=== PATIENT | female | born 1980 | race Caucasian/White ===

== ENCOUNTER 2016-12-27 23:30 | Emergency (ER) | payer MEDICAID ==
[~2016-12-27] VITALS: Ht 182.9 cm; Wt 107.6 kg
[~2016-12-27 23:30] MED LIST: ASPI1TAB24 PO; CLIN300C93 PO; NAPR500T PO; SUMA25TA3 PO
[2016-12-27] MEDS ORDERED: ONDANSETRON ODT 4 MG ONE (23:55)
[2016-12-28] MEDS ORDERED: ONDANSETRON ODT 4 MG PO ONE
[2016-12-28 00:02] VITALS: BP 131/95
== END 2016-12-28 01:36 | disposition home or self-care (01) ==
LOC: ED 12-28 01:32
DX: S16.1XXA Strain of muscle, fascia and tendon at neck level, initial encounter (principal); S00.03XA Contusion of scalp, initial encounter; F15.10 Other stimulant abuse, uncomplicated; F41.9 Anxiety disorder, unspecified; F17.210 Nicotine dependence, cigarettes, uncomplicated; Y04.0XXA Assault by unarmed brawl or fight, initial encounter; Y93.89 Activity, other specified; Y92.410 Unspecified street and highway as the place of occurrence of the external cause; Y99.9 Unspecified external cause status
CPT/HCPCS: 70450; 70486; 72125; 73130; 99284; Q0162

== ENCOUNTER 2017-12-21 16:25 | Emergency (ER) | payer MEDICAID ==
[~2017-12-21] VITALS: Ht 182.9 cm; Wt 110.2 kg
[~2017-12-21 16:25] MED LIST changes: +CLIN300C8 PO; -CLIN300C93 PO; +NAPR-856 PO; -NAPR500T PO
[2017-12-21 16:29] VITALS: BP 132/84
[2017-12-21] MEDS ORDERED: KETOROLAC 30 MG/1 ML ONE (16:52)
[2017-12-21] MEDS ORDERED: KETOROLAC 30 MG/1 ML IM ONE (17:00)
== END 2017-12-21 17:37 | disposition home or self-care (01) ==
LOC: ED 17:31
DX: S20.212A Contusion of left front wall of thorax, initial encounter (principal); E66.9 Obesity, unspecified; F31.9 Bipolar disorder, unspecified; X58.XXXA Exposure to other specified factors, initial encounter; Y93.89 Activity, other specified; Y92.098 Other place in other non-institutional residence as the place of occurrence of the external cause; Y99.8 Other external cause status
CPT/HCPCS: 71046; 71120; 96372; 99284; J1885

== ENCOUNTER 2019-07-21 17:17 | Emergency (ER) | payer MEDICAID ==
[~2019-07-21] VITALS: Ht 182.9 cm; Wt 118.0 kg
[2019-07-21 17:35] VITALS: BP 119/85
== END 2019-07-21 18:56 | disposition home or self-care (01) ==
LOC: ED 18:53
DX: S90.31XA Contusion of right foot, initial encounter (principal); F17.200 Nicotine dependence, unspecified, uncomplicated; W22.8XXA Striking against or struck by other objects, initial encounter; Y93.89 Activity, other specified; Y92.009 Unspecified place in unspecified non-institutional (private) residence as the place of occurrence of the external cause; Y99.8 Other external cause status
CPT/HCPCS: 99283

== ENCOUNTER 2019-08-30 21:34 | Emergency (ER) | payer MEDICAID ==
[~2019-08-30] VITALS: Ht 182.9 cm; Wt 124.1 kg
--- NOTE | 2019-08-30 21:47 | NUR ---
"ALMOST FELL OFF MY BED" S/P HYSTERECTOMY. STATES SHE FELT A RIP IN HER ABD. PAIN STARTED IMMEDIATELY AFTER SHE FELL. "FEELS LIKE MY COOCHIE IS POOCHED OUT" PAIN IN LEFT LOWER QUARD. PAIN 8/10 AFTER FALL UNTIL NOW. PAIN WAS 0/10 BEFORE FALL.
[2019-08-30] MEDS ORDERED: ONDANSETRON 2MG/ML, 2ML IVPush ONE (22:00)
[2019-08-30] MEDS ORDERED: MORPHINE SULFATE 4 MG/ML, 1ML IVPush PRN (22:00)
[2019-08-30] MEDS ORDERED: MORPHINE SULFATE 4 MG/ML, 1ML ONE (22:16)
[2019-08-30] MEDS ORDERED: ONDANSETRON 2MG/ML, 2ML ONE (22:16)
[2019-08-30 22:18] LABS: BASOPHILS # (AUTO) 0.13 x10^3/uL (0-0.1); BASOPHILS % (AUTO) 1 % (0-1); EOSINOPHILS % (AUTO) 3 % (1-7); LYMPHOCYTES # (AUTO) 3.25 x10^3/uL (1-3.4); LYMPHOCYTES % (AUTO) 33 % (22-44); MD NO; MEAN CORPUSCULAR HEMOGLOBIN 29.5 pg (27.0-34.8); MEAN CORPUSCULAR HGB CONC 33.2 g/dL (32.4-35.8); MEAN PLATELET VOLUME 8.5 fL (7.4-10.4); MONOCYTES % (AUTO) 7 % (2-9); NEUTROPHILS # (AUTO) 5.61 x10^3/uL (1.8-6.8); NEUTROPHILS % (AUTO) 56 % (42-75); PLATELET COUNT 255 x10^3/uL (130-400); RED BLOOD COUNT 4.36 x10^6/uL (3.82-5.3); RED CELL DISTRIBUTION WIDTH 13.6 % (9.6-15.2)
--- NOTE | 2019-08-30 22:20 | NUR ---
PIV placed and pt medicated for pain per emar. will reassess pain
[2019-08-30 22:24] LABS: MICROSCOPIC AUTO
[2019-08-30 22:26] LABS: CULTURE INDICATED? YES
[2019-08-30 22:27] LABS: ALANINE AMINOTRANSFERASE 17 U/L (12-78); ALBUMIN 3.3 g/dL (3.4-5.0); ANION GAP 5 mmol/L (5-15); CALCIUM 8.2 mg/dL (8.5-10.1); CHLORIDE 115 mmol/L (98-107); CREATININE 1.47 mg/dL (0.55-1.02)
[2019-08-30 22:31] LABS: ALKALINE PHOSPHATASE 77 U/L (45-117); BILIRUBIN,TOTAL 0.2 mg/dL (0.2-1.0); TOTAL PROTEIN 6.5 g/dL (6.4-8.2)
--- NOTE | 2019-08-30 23:08 | NUR ---
pt report pain has improved to 5/10
--- NOTE | 2019-08-30 23:10 | NUR ---
pt for recheck by
[2019-08-30 23:32] VITALS: BP 117/84
[2019-08-30] MEDS ORDERED: OMNIPAQUE 350 MG/ML, 100ML BOTTLE ONE (23:45)
== END 2019-08-30 23:34 | disposition home or self-care (01) ==
LOC: ED 21:56
DX: S39.011A Strain of muscle, fascia and tendon of abdomen, initial encounter (principal); R10.31 Right lower quadrant pain; R10.12 Left upper quadrant pain; F17.200 Nicotine dependence, unspecified, uncomplicated; Z90.49 Acquired absence of other specified parts of digestive tract; Z90.710 Acquired absence of both cervix and uterus; X58.XXXA Exposure to other specified factors, initial encounter; Y93.89 Activity, other specified; Y92.89 Other specified places as the place of occurrence of the external cause; Y99.8 Other external cause status
CPT/HCPCS: 36415; 74177; 80053; 81001; 83690; 84703; 85025; 87086; 96374; 96375; 99284; J2270; J2405; Q9967

== ENCOUNTER 2019-09-08 10:38 | Emergency (ER) | payer MEDICAID ==
[~2019-09-08] VITALS: Ht 182.9 cm; Wt 121.9 kg
[2019-09-08 10:46] VITALS: BP 140/84
--- NOTE | 2019-09-08 10:53 | NUR ---
PT TO ED WITH L EAR PAIN/DRAINAGE "OLD EAR WAX", STATES HER R EAR DRUM BURST A MONTH AGO AND WAS SIMILAR, UNKNOWN REASON. PT RESTING IN [facility], CALL LIGHT WITHIN REACH.
== END 2019-09-08 11:49 | disposition home or self-care (01) ==
LOC: ED 11:46
DX: H60.92 Unspecified otitis externa, left ear (principal); Z87.42 Personal history of other diseases of the female genital tract
CPT/HCPCS: 99283

== ENCOUNTER 2020-06-16 22:35 | Emergency (ER) | payer MEDICAID ==
[~2020-06-16] VITALS: Ht 182.9 cm; Wt 144.0 kg
[2020-06-16] MEDS ORDERED: IBUPROFEN 600 MG TABLET PO ONE (23:30)
[2020-06-16] MEDS ORDERED: IBUPROFEN 600 MG TABLET ONE (23:32)
[2020-06-17 00:42] VITALS: BP 130/86
== END 2020-06-17 00:54 | disposition home or self-care (01) ==
LOC: ED 23:28
DX: G89.11 Acute pain due to trauma (principal); M25.532 Pain in left wrist; M79.642 Pain in left hand; M77.9 Enthesopathy, unspecified
CPT/HCPCS: 29125; 99284

== ENCOUNTER 2020-08-10 14:51 | Emergency (ER) | payer MEDICAID ==
[~2020-08-10] VITALS: Ht 182.9 cm; Wt 146.8 kg
[2020-08-10 15:17] VITALS: BP 161/94
== END 2020-08-10 16:25 | disposition home or self-care (01) ==
LOC: ED 16:00
DX: S43.52XA Sprain of left acromioclavicular joint, initial encounter (principal); G43.909 Migraine, unspecified, not intractable, without status migrainosus; F17.210 Nicotine dependence, cigarettes, uncomplicated; Z90.49 Acquired absence of other specified parts of digestive tract; Z98.51 Tubal ligation status; Z90.710 Acquired absence of both cervix and uterus; X58.XXXA Exposure to other specified factors, initial encounter; Y93.89 Activity, other specified; Y92.89 Other specified places as the place of occurrence of the external cause; Y99.8 Other external cause status
CPT/HCPCS: 99283; 99406

== ENCOUNTER 2020-10-03 14:26 | Emergency (ER) | payer MEDICAID ==
[~2020-10-03] VITALS: Ht 182.9 cm; Wt 147.4 kg
[~2020-10-03 14:26] MED LIST changes: -CLIN300C8 PO; +CLIN300C9 PO
--- NOTE | 2020-10-03 16:27 | NUR ---
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
--- NOTE | 2020-10-03 16:31 | NUR ---
THIS IS A 39 YEAR OLD FEMALE WHO C/O OF BURNING RUQ/LUQ ABD PAIN X ONE WEEK. DENIES N/V. HX OF VIKAS. PT TO BR TO OBTAIN URINE, EXPLAINED CLEAN CATCH. PT VERBALIZED UNDERSTANDING
[2020-10-03] MEDS ORDERED: MAALOX/HYOSCYAMINE/LIDOCAINE 45 ML BTL ONE (16:52)
[2020-10-03 16:58] LABS: HCG UR SG 1.024 (1.003-1.030); MICROSCOPIC AUTO
[2020-10-03] MEDS ORDERED: MAALOX/HYOSCYAMINE/LIDOCAINE 45 ML BTL PO ONE (17:00)
[2020-10-03] MEDS ORDERED: ONDANSETRON ODT 4 MG PO ONE (17:00)
[2020-10-03] MEDS ORDERED: HYDROcodone/APAP 5/325 TABLET PO ONE ×2 (17:00→21:00)
--- NOTE | 2020-10-03 17:00 | NUR ---
assumed care of pt. pt here for epigastric pain x2 days. pt also c/o nausea but denies vomtiing. pt states that she has been having diarrhea, last episode this AM. pt is currently resting on gurney in position of comfort with family member at bedside. pt has been medicated. pt advised not to drive after GI cocktail. pt verablized understanding. positioning for comfort. lab has been to bedside. pt updated on POC
[2020-10-03 17:03] LABS: BASOPHILS % (AUTO) 1 % (0-1); EOSINOPHILS % (AUTO) 1 % (1-7); LYMPHOCYTES % (AUTO) 27 % (22-44); MEAN CORPUSCULAR HEMOGLOBIN 28.6 pg (27.0-34.8); MEAN CORPUSCULAR HGB CONC 33.9 g/dL (32.4-35.8); MEAN PLATELET VOLUME 7.6 fL (7.4-10.4); MONOCYTES % (AUTO) 6 % (2-9); NEUTROPHILS % (AUTO) 65 % (42-75); PLATELET COUNT 251 x10^3/uL (130-400); RED BLOOD COUNT 5.15 x10^6/uL (3.82-5.3); RED CELL DISTRIBUTION WIDTH 13.7 % (9.6-15.2)
[2020-10-03 17:14] LABS: ALANINE AMINOTRANSFERASE 22 U/L (12-78); ALBUMIN 3.6 g/dL (3.4-5.0); ANION GAP 4 mmol/L (5-15); CALCIUM 9.1 mg/dL (8.5-10.1); CHLORIDE 112 mmol/L (98-107); CREATININE 1.48 mg/dL (0.55-1.02)
[2020-10-03 17:17] LABS: ALKALINE PHOSPHATASE 99 U/L (45-117); BILIRUBIN,TOTAL 1.1 mg/dL (0.2-1.0); TOTAL PROTEIN 7.3 g/dL (6.4-8.2)
[2020-10-03 17:21] LABS: MD NO
--- NOTE | 2020-10-03 17:40 | NUR ---
pt reports that she initially had relief of pain but that now it is worse. pt to be medicated. no vomiting. no diarrhea. pt sitting up on [id number] watching TV
[2020-10-03] MEDS ORDERED: HYDROcodone/APAP 5/325 TABLET ONE ×2 (17:43→20:40)
[2020-10-03] MEDS ORDERED: ONDANSETRON ODT 4 MG ONE (17:43)
--- NOTE | 2020-10-03 17:50 | NUR ---
Dr. Helms has been to bedside for recheck
[2020-10-03] MEDS ORDERED: PANTOPRAZOLE 40MG TABLET PO ONE (18:00)
[2020-10-03] MEDS ORDERED: PANTOPRAZOLE 40MG TABLET ONE (18:16)
--- NOTE | 2020-10-03 18:34 | NUR ---
pt has been medicated per order. awaiting US pt updated onn POC
--- NOTE | 2020-10-03 18:49 | NUR ---
REPORT RECIEVED FROM LD AYALA
--- NOTE | 2020-10-03 18:50 | NUR ---
no changes. pt awaiting US report to [facility]
--- NOTE | 2020-10-03 20:01 | NUR ---
ULTRASOUND AT BEDSIDE
[2020-10-03] MEDS ORDERED: PHENAZOPYRIDINE 200 MG TABLET ONE (20:36)
[2020-10-03 20:42] VITALS: BP 110/75
[2020-10-03] MEDS ORDERED: PHENAZOPYRIDINE 200 MG TABLET PO ONE (21:00)
== END 2020-10-03 21:28 | disposition home or self-care (01) ==
LOC: ED 18:19
DX: K29.00 Acute gastritis without bleeding (principal); R00.0 Tachycardia, unspecified; Z90.49 Acquired absence of other specified parts of digestive tract; Z90.89 Acquired absence of other organs; Z90.710 Acquired absence of both cervix and uterus; Z88.6 Allergy status to analgesic agent; Z88.8 Allergy status to other drugs, medicaments and biological substances
CPT/HCPCS: 36415; 76700; 80053; 81001; 81025; 83690; 85025; 87086; 93005; 99285; Q0162

== ENCOUNTER 2020-11-15 21:29 | Emergency (ER) | payer MEDICAID ==
[~2020-11-15] VITALS: Ht 185.4 cm; Wt 150.0 kg
[2020-11-15 22:19] VITALS: BP 133/88
--- NOTE | 2020-11-15 22:22 | NUR ---
Pt agrees with and understands discharge plan and instructions.
== END 2020-11-15 22:42 | disposition home or self-care (01) ==
LOC: ED 22:00
DX: S60.222A Contusion of left hand, initial encounter (principal); Z98.51 Tubal ligation status; Z90.49 Acquired absence of other specified parts of digestive tract; Z90.710 Acquired absence of both cervix and uterus; X58.XXXA Exposure to other specified factors, initial encounter; Y93.89 Activity, other specified; Y92.89 Other specified places as the place of occurrence of the external cause; Y99.8 Other external cause status
CPT/HCPCS: 99283

== ENCOUNTER 2021-01-04 22:22 | Emergency (ER) | payer MEDICAID, OTHER ==
[~2021-01-04] VITALS: Ht 182.9 cm; Wt 150.0 kg
[2021-01-04 22:41] VITALS: BP 155/101
[2021-01-04] MEDS ORDERED: SODIUM CHLORIDE FLUSH 10ML SYR IVF ONE (23:00)
[2021-01-04] MEDS ORDERED: HYDROmorphone 1 MG/ML, 1ML INJ IVPush PRN (23:00)
[2021-01-04] MEDS ORDERED: ONDANSETRON 2MG/ML, 2ML IVPush ONE (23:00)
[2021-01-04] MEDS ORDERED: ONDANSETRON 2MG/ML, 2ML ONE (23:06)
[2021-01-04] MEDS ORDERED: HYDROmorphone 1 MG/ML, 1ML INJ ONE (23:06)
[2021-01-04] MEDS ORDERED: IBUPROFEN 200 MG TABLET ONE (23:41)
[2021-01-04] MEDS ORDERED: HYDROcodone/APAP 5/325 TABLET ONE (23:42)
[2021-01-05] MEDS ORDERED: IBUPROFEN 200 MG TABLET PO ONE
[2021-01-05] MEDS ORDERED: HYDROcodone/APAP 5/325 TABLET PO ONE
== END 2021-01-04 23:53 | disposition home or self-care (01) ==
LOC: ED 22:51
DX: S93.491A Sprain of other ligament of right ankle, initial encounter (principal); X50.0XXA Overexertion from strenuous movement or load, initial encounter; Y93.89 Activity, other specified; Y92.009 Unspecified place in unspecified non-institutional (private) residence as the place of occurrence of the external cause; Y99.8 Other external cause status
CPT/HCPCS: 29515; 73610; 96374; 96375; 99284; J1170; J2405

== ENCOUNTER 2021-03-25 16:48 | Emergency (ER) | payer MEDICAID, OTHER ==
[~2021-03-25] VITALS: Ht 182.9 cm; Wt 151.0 kg
[2021-03-25 16:52] VITALS: BP 137/85
--- NOTE | 2021-03-25 17:39 | NUR ---
PT C/O SINUS PRESSURE AND PAIN, BILATERAL EAR PAIN THAT GOES DOWN NECK. PT ALSO HAVING BURNING WHEN PEEING AND URINE HAS BEEN DARK. PAIN 04/08.
[2021-03-25 17:59] LABS: MICROSCOPIC AUTO
--- NOTE | 2021-03-25 18:20 | NUR ---
PT REC'VD DISCHARGE INSTRUCTIONS AND EDUCATION. PT HAD NO FURTHER QUESTIONS. PT AMBULATED TO DC AREA, STEADY GAIT.
== END 2021-03-25 18:55 | disposition home or self-care (01) ==
LOC: ED 17:17
DX: J01.00 Acute maxillary sinusitis, unspecified (principal); B96.89 Other specified bacterial agents as the cause of diseases classified elsewhere; J44.9 Chronic obstructive pulmonary disease, unspecified; Z87.891 Personal history of nicotine dependence
CPT/HCPCS: 81001; 99283